=== PATIENT | female | born 1955 | race Caucasian/White ===

== ENCOUNTER 2017-10-18 05:59 | Day surgery (SDC) | payer OTHER ==
[2017-10-18] MEDS ORDERED: MIDAZOLAM 1 MG/ML 2 ML INJ ×2 (08:44)
[2017-10-18] MEDS ORDERED: FENTAnyl 50 MCG/ML VIAL (08:44)
== END 2017-10-18 09:02 | disposition home or self-care (01) ==
LOC: GIL 05:59
DX: R19.4 Change in bowel habit (principal); K21.9 Gastro-esophageal reflux disease without esophagitis; K29.60 Other gastritis without bleeding; K44.9 Diaphragmatic hernia without obstruction or gangrene; K64.8 Other hemorrhoids
CPT/HCPCS: 43239